=== PATIENT | female | born 1950 | race Caucasian/White ===

== ENCOUNTER → 2017-10-22 | Outpatient (CLI) | payer MEDICARE, OTHER ==
--- NOTE | 2017-10-22 12:01 | ECHOF ---
Referral Reason:I05.1 mitral insufficiency MEASUREMENTS -------- HEIGHT: 165.1 cm WEIGHT: 108.9 kg BP: RVIDd: 3.1 cm (< 3.3) IVSd: 1.3 cm (0.6 - 1.1) LVIDd: 5.0 cm (3.9 - 5.3) LVPWd: 1.4 cm (0.6 - 1.1) IVSs: 1.4 cm LVIDs: 4.0 cm LVPWs: 1.6 cm LA Diam: 4.4 cm (2.7 - 3.8) LAESV Index (A-L): 39.30 ml/m Ao Diam: 2.6 cm (2.0 - 3.7) AV Cusp: 1.2 cm (1.5 - 2.6) LA Diam: 4.3 cm (2.7 - 3.8) MV EXCURSION: 18.742 mm (> 18.000) MV EF SLOPE: 48 mm/s (70 - 150) EPSS: 1.1 cm MV E Sedrick: 1.20 m/s MV DecT: 270 ms MV A Sedrick: 0.86 m/s MV E/A Ratio: 1.39 AV maxP.83 mmHg AV meanP.96 mmHg RAP: 5.00 mmHg RVSP: 19.39 mmHg FINDINGS -------- Sinus rhythm. This was a technically adequate study. The left ventricular size is normal. There is mild concentric left ventricular hypertrophy. Overa ll left ventricular systolic function is low-normal with, an EF between 50 - 55 %. The right ventricle is normal in size. The left atrium is mildly dilated. LA is severely dilated >40 ml/m2 There is mild aortic stenosis present. Peak/mean gradient across the Aortic Valve is 17.83mmHg / 8. 96mmHg. Mild mitral annular calcification present. Mild mitral regurgitation is present. Mild tricuspid regurgitation present. There is no evidence of pulmonary hypertension. The right v entricular systolic pressure, as measured by Doppler, is 19.39mmHg. There is no pulmonic regurgitation present. The aortic root size is normal. There is no pericardial effusion. CONCLUSIONS -------- 1. The left ventricular size is normal. 2. There is mild concentric left ventricular hypertrophy. 3. Overall left ventricular systolic function is low-normal with, an EF between 50 - 55 %. 4. The right ventricle is normal in size. 5. The left atrium is mildly dilated. 6. LA is severely dilated >40 ml/m2 7. There is mild aortic stenosis present. 8. Peak/mean gradient across the Aortic Valve is 17.83mmHg / 8.96mmHg. 9. Mild mitral annular calcification present. 10. Mild mitral regurgitation is present. 11. Mild tricuspid regurgitation present. 12. There is no evidence of pulmonary hypertension. 13. The right ventricular systolic pressure, as measured by Doppler, is 19.39mmHg. 14. There is no pulmonic regurgitation present. 15. The aortic root size is normal. 16. There is no pericardial effusion. REGIONAL TANKER TRUCK DRIVER: Sowmya Castro RDCS
== END | disposition home or self-care (01) ==
LOC: RADECHMAIN 11:15
PROVIDERS: ATTEND Family Medicine
DX: I08.1 Rheumatic disorders of both mitral and tricuspid valves (principal)
CPT/HCPCS: 93306

== ENCOUNTER → 2017-10-29 | Outpatient (CLI) | payer MEDICARE, OTHER ==
--- NOTE | 2017-10-30 14:01 | MM ---
Reason for exam: screening (asymptomatic). Last mammogram was performed 2 years and 3 months ago. History: Patient is postmenopausal. Excisional biopsy of the right breast, 1966. Took hormonal contraceptives for 1 year beginning at age 17. Took estrogen for 2 years. Took progesterone for 2 years. Physical Findings: A clinical breast exam by your physician is recommended on an annual basis and results should be correlated with mammographic findings. MG 3D Screening Mammo W/Cad Bilateral CC and MLO view(s) were taken. Prior study comparison: July 20, 2015, bilateral MG 3d screening mammo w/cad. July 16, 2014, bilateral MG screening mammo w CAD. There are scattered fibroglandular densities. No significant changes when compared with prior studies. ASSESSMENT: Negative, BI-RAD 1 RECOMMENDATION: Routine screening mammogram of both breasts in 1 year.
== END | disposition home or self-care (01) ==
LOC: RADMAMWWP 16:15
PROVIDERS: ATTEND Family Medicine
DX: Z12.31 Encounter for screening mammogram for malignant neoplasm of breast (principal)
CPT/HCPCS: 77063; 77067

== ENCOUNTER → 2018-01-17 | Outpatient (CLI) | payer MEDICARE, OTHER ==
--- NOTE | 2018-01-17 16:20 | PN ---
PROGRESS NOTE DATE OF SERVICE: 01/17/2018 This patient is a 67-year-old lady who has been followed in the sleep center for treatment of obstructive sleep apnea-hypopnea syndrome. Patient is successfully continuing to use her CPAP equipment every night. Sometimes she feels that the pressure is not enough for her. [place] Sleepiness Scale today is 10. I checked her CPAP unit. CPAP pressure is 9 cm of water. Usage is 353 nights out of 365 nights for more than 4 hours for the last year. Average usage is 10.6 hours. Leak for the year is 11 L/minute, which is within normal range. Apnea-hypopnea index average for the year is 1.3, which is perfect. MEDICATIONS: 1. Metformin. 2. Glimepiride. 3. Gabapentin. 4. Atenolol. 5. Chlorthalidone. 6. Lotrel. 7. Fluoxetine. 8. Methylphenidate. 9. Atorvastatin. 10.Oxycodone. PHYSICAL EXAMINATION: GENERAL: A pleasant patient in no distress. VITAL SIGNS: Temperature 97.8, oxygen saturation at room air 94%, HR 60, blood pressure 190/86. Height 5 feet 5-1/2 inches, weight 243.4, body mass index 39.8. HEENT: PERRLA, EOMI. Evaluation of oropharynx showed tongue protrudes midline. Low position of soft palate. NECK: Supple. No JVD. Thyroid is not palpable. LUNGS: Clear to percussion and to auscultation. Good air exchange. No wheezing or rhonchi. HEART: S1, S2 regular. No murmurs, gallops or rubs. ABDOMEN: Obese. EXTREMITIES: No clubbing or cyanosis. ASSEMBLER ERECTOR: Awake, alert, and oriented X3. Cranial nerves 2 to 7 intact. There is no fasciculation or atrophy. noted. No focal deficits observed. IMPRESSION: 1. Obstructive sleep apnea-hypopnea syndrome. Patient has demonstrated practically 100% compliance with treatment, benefitting from treatment. 2. Obesity. 3. Hypertension. 4. Diabetes mellitus. 5. History of anxiety and episodes of panic attack. 6. History of depression. 7. History of attention deficit hyperactivity disorder. 8. Hyperlipidemia. 9. History of rheumatic fever. PLAN: 1. I adjusted CPAP pressure up to 11 cm of water. I reviewed results of the previous sleep study. 2. Patient will continue to use CPAP equipment every night. 3. Watching and losing weight. 4. Sleep hygiene with regular time in bed for at least 8 hours. 5. No driving if feeling any sleepiness. 6. Prescription for all necessary CPAP supplies, including mask, tube, filters. Thank you very much for allowing me to participate in the management of your patient. Sincerely, Jose Orozco MD, PhD, FAASM Diplomat of [place] [employer] [place] [employer] Chief Development Officer of [facility] [place] MMODL / TANISHAN: [id number] /
== END | disposition home or self-care (01) ==
LOC: SLEEP 14:49
PROVIDERS: ATTEND Internal Medicine
DX: G47.33 Obstructive sleep apnea (adult) (pediatric) (principal); E66.9 Obesity, unspecified; I10 Essential (primary) hypertension; E11.9 Type 2 diabetes mellitus without complications; E78.5 Hyperlipidemia, unspecified; F41.0 Panic disorder [episodic paroxysmal anxiety]; F32.9 Major depressive disorder, single episode, unspecified; F90.9 Attention-deficit hyperactivity disorder, unspecified type; Z68.39 Body mass index [BMI] 39.0-39.9, adult; Z87.898 Personal history of other specified conditions; Z99.89 Dependence on other enabling machines and devices; Z79.84 Long term (current) use of oral hypoglycemic drugs; Z79.891 Long term (current) use of opiate analgesic; Z79.899 Other long term (current) drug therapy

== ENCOUNTER 2018-01-28 09:54 | Day surgery (SDC) | payer MEDICARE, OTHER ==
[2018-01-23 13:15] VITALS: BMI 40.1
[~2018-01-28 09:54] MED LIST: LACTATED RINGERS 1,000 ML IV SCH
[2018-01-28 10:24] VITALS: TEMP 97
[2018-01-28 10:25] LABS: Glucose,Whole Blood 147 mg/dL (75-99)
[2018-01-28] MEDS ORDERED: PROPOFOL 10 MG/ML 20 ML VIAL IV ONE (11:05)
[2018-01-28] MEDS ORDERED: KETAMINE 10 MG/ML 20 ML VIAL ONE (11:05)
[2018-01-28] MEDS ORDERED: LIDOCAINE 1% INJ 10MG/ML (20 ML MDV) ONE (11:05)
[2018-01-28 11:36] VITALS: BP 117/69; PULSE 61; RESP 16
--- NOTE | 2018-01-28 11:36 | P.PCN ---
Date of Procedure: 01/28/18 Procedure(s) Performed: Procedure: 1. Esophagogastroduodenoscopy and biopsy. 2. Total colonoscopy. Preoperative diagnosis: Esophagitis and screening for colon cancer. Postoperative diagnosis: 1. Small sliding hiatal hernia with no obvious esophagitis or complicated reflux disease. 2. Mild gastritis. 3. Biopsies obtained from the duodenum, antrum and esophagus. 4. Sigmoid diverticulosis with no evidence of acute diverticulitis, strictures, polyps or cancer. Preparation: HalfLytely prep. Sedation: Was provided by anesthesia. Brief clinical history: The patient is an 67-year-old female who is scheduled for this evaluation because of reflux issues and difficulty swallowing. There is also family history of colon cancer in her sister. She had a prior colonoscopy around 2009. The patient has no abdominal complaints, bleeding or anemia. Procedure: With the patient on her left lateral decubitus position and after informed consent and adequate sedation, I passed the Olympus-GIF 160 video upper endoscope through the cricopharyngeus down the esophagus. GE junction was around 39 cm from the incisors and there was a small sliding hiatal hernia but no obvious esophagitis or complicated reflux disease. The endoscope was then passed into the stomach which was insufflated with air and inspected in detail including the retroflex view in the cardia. There was some mottling and erythema in the antrum but no ulcers or erosions. Pyloric channel did not show any ulcers. Duodenal bulb, post bulbar area and descending duodenum appeared within normal limits. I obtained biopsies from the duodenum, antrum and esophagus then the endoscope was withdrawn and I proceeded with the colonoscopy. Perianal area did not show any fissures or fistulas. There were no masses felt on digital rectal examination. The Olympus CFQ 160L video colonoscope was then inserted in the rectum in the usual fashion and advanced to the cecum. There were few diverticular orifices seen scattered in the sigmoid but I saw no evidence of acute diverticulitis or strictures. No polyps or tumors were seen or any potential sources of bleeding. I retroflexed the endoscope in the rectum before the endoscope was withdrawn. The patient tolerated the procedure well. Plan: The patient was reassured. Discussed dietary measures. She will follow- up with you as planned and I recommended repeat colonoscopy in 5 years because of the family history and her sister.
== END 2018-01-28 12:13 | disposition home or self-care (01) ==
LOC: ORWHC2ENDO 09:54
DX: Z12.11 Encounter for screening for malignant neoplasm of colon (principal); K29.50 Unspecified chronic gastritis without bleeding; K21.0 Gastro-esophageal reflux disease with esophagitis; E78.5 Hyperlipidemia, unspecified; K44.9 Diaphragmatic hernia without obstruction or gangrene; K57.30 Diverticulosis of large intestine without perforation or abscess without bleeding; J44.9 Chronic obstructive pulmonary disease, unspecified; I25.10 Atherosclerotic heart disease of native coronary artery without angina pectoris; I10 Essential (primary) hypertension; E11.9 Type 2 diabetes mellitus without complications; E66.9 Obesity, unspecified; M19.90 Unspecified osteoarthritis, unspecified site; F32.9 Major depressive disorder, single episode, unspecified; Z79.84 Long term (current) use of oral hypoglycemic drugs; Z79.891 Long term (current) use of opiate analgesic; Z80.0 Family history of malignant neoplasm of digestive organs; Z79.899 Other long term (current) drug therapy; Z68.41 Body mass index [BMI] 40.0-44.9, adult
CPT/HCPCS: 43239; J2001; J2704; G0105; 88305

== ENCOUNTER → 2019-01-09 | Outpatient (CLI) | payer MEDICARE, OTHER ==
--- NOTE | 2019-01-10 13:42 | MM ---
Reason for exam: screening (asymptomatic). Last mammogram was performed 1 year and 2 months ago. History: Patient is postmenopausal. Excisional biopsy of the right breast, 1966. Took hormonal contraceptives for 1 year beginning at age 17. Took estrogen for 2 years. Took progesterone for 2 years. Physical Findings: A clinical breast exam by your physician is recommended on an annual basis and results should be correlated with mammographic findings. MG 3D Screening Mammo W/Cad Bilateral CC, MLO, and XCCL view(s) were taken. Prior study comparison: October 29, 2017, bilateral MG 3d screening mammo w/cad. July 20, 2015, bilateral MG 3d screening mammo w/cad. No significant changes when compared with prior studies. ASSESSMENT: Negative, BI-RAD 1 RECOMMENDATION: Routine screening mammogram of both breasts in 1 year.
== END | disposition home or self-care (01) ==
LOC: RADMAMWWP 11:02
PROVIDERS: ATTEND Nurse Practitioner
DX: Z12.31 Encounter for screening mammogram for malignant neoplasm of breast (principal)
CPT/HCPCS: 77063; 77067

== ENCOUNTER → 2019-01-16 | Outpatient (CLI) | payer MEDICARE, OTHER ==
--- NOTE | 2019-01-16 14:26 | SFUN ---
SLEEP CENTER FOLLOW UP NOTE DATE OF SERVICE: 01/16/2019 A 68-year-old lady who has been followed in the Sleep Center for treatment of obstructive sleep apnea-hypopnea syndrome. Patient continued to use her CPAP equipment every night for the whole night and does not have any problem related to the mask fitting or pressure. She would prefer to change regimen of her heated humidity and her heated tube. [place] Sleepiness Scale today is 2, which is absolutely perfect. I checked her CPAP unit. CPAP pressure is 10 cm of water. Usage is every night and 29/30 nights more than 4 hours. Average usage 12.1 hours per night. Leak is 70 L/minute. Apnea-hypopnea index only 1.4, which is absolutely perfect. MEDICATIONS: Glimepiride, metformin, gabapentin, atenolol, chlorthalidone, Lotrel, , methylphenidate, atorvastatin, oxycodone. PHYSICAL EXAM: Patient in no distress, BP 148/73, HR 66, RR 16, height 5 foot, 5-1/2 inches, weight 242 pounds. Body mass index 39.6, temperature 98.3, oxygen saturation at room air 95%. OROPHARYNX: Low position of soft palate, Mallampati 3. ABDOMEN: Slightly obese. NECK: Supple, no JVD. Thyroid is not palpable. LUNGS: Clear to percussion and to auscultation. Good air exchange. No wheezing or rhonchi. HEART: S1, S2 regular. No murmurs, gallops, or rubs. EXTREMITIES: No clubbing or cyanosis. SCHOOL OFFICE MANAGER: Awake, alert, and oriented X3. Cranial nerves 2 to 7 intact. There is no fasciculation or atrophy. noted. No focal deficits observed. IMPRESSION: 1. Obstructive sleep apnea-hypopnea syndrome. Patient demonstrated practically 100% compliance with treatment, benefitting from treatment. 2. Hypertension. 3. Obesity. 4. Diabetes mellitus. 5. History of anxiety and episodes of panic attacks. 6. History of depression. 7. History of ADHD. 8. Hyperlipidemia. 9. History of rheumatic fever. PLAN: 1. Patient will continue to use CPAP equipment every night for the whole night. 2. Losing weight. 3. I explained to patient how to adjust heated humidity of her unit. 4. Precautions related to driving. No driving if feeling sleepiness. 5. I will maintain all necessary prescriptions for supplies including Marsh FX nasal pillow mask, tube, filters. 6. Followup visit in one year or earlier if patient has any problems. Thank you very much for allowing me to participate in the management of your patient. Sincerely, Jose Orozco MD, PhD, FAASM Diplomat of [place] [employer] [place] [employer] Food Server of [facility] [place] MMODL / TANISHAN: [id number] /
== END | disposition home or self-care (01) ==
LOC: SLEEP 13:14
PROVIDERS: ATTEND Internal Medicine
DX: G47.33 Obstructive sleep apnea (adult) (pediatric) (principal); I10 Essential (primary) hypertension; E66.9 Obesity, unspecified; E11.9 Type 2 diabetes mellitus without complications; E78.5 Hyperlipidemia, unspecified; Z86.59 Personal history of other mental and behavioral disorders; Z87.09 Personal history of other diseases of the respiratory system; Z99.89 Dependence on other enabling machines and devices

== ENCOUNTER → 2019-02-07 | Outpatient (CLI) | payer MEDICARE, OTHER ==
--- NOTE | 2019-02-07 12:53 | US ---
EXAMINATION TYPE: US kidneys/renal and bladder DATE OF EXAM: 02/07/2019 COMPARISON: CT 2016 CLINICAL HISTORY: N18.3 Chronic kidney disease State III. EXAM MEASUREMENTS: Right Kidney: 12.3 x 6.0 x 5.4 cm Left Kidney: 10.2 x 4.4 x 4.5 cm Right Kidney: No hydronephrosis or masses seen Left Kidney: thinned cortex Bladder: wnl Bilateral Jets seen: only right jet seen There is asymmetric diminished size and cortical thinning to the left kidney which correlates with [address] No concerning solid or cystic renal masses bilaterally. No hydronephrosis noted. The urinary bladder is satisfactorily distended. Bilateral ureteral jets are not seen. IMPRESSION: Asymmetric chronic medical renal changes to left kidney.
== END | disposition home or self-care (01) ==
LOC: RADUSWWP 12:21
PROVIDERS: ATTEND Internal Medicine
DX: N18.3 Chronic kidney disease, stage 3 (moderate) (principal)
CPT/HCPCS: 76770

== ENCOUNTER → 2019-02-17 | Outpatient (CLI) | payer MEDICARE, OTHER ==
--- NOTE | 2019-02-17 15:16 | US ---
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 Bruit EXAM MEASUREMENTS: RIGHT: Peak Systolic Velocity (PSV) cm/sec ----- Right CCA: 71.6 ----- Right ICA: 62.5 ----- Right ECA: 87.3 ICA/CCA ratio: 0.9 RIGHT: End Diastole cm/sec ----- Right CCA: 16.8 ----- Right ICA: 22.0 ----- Right ECA: 5.1 LEFT: Peak Systolic Velocity (PSV) cm/sec ----- Left CCA: 91.9 ----- Left ICA: 90.3 ----- Left ECA: 98.4 ICA/CCA ratio: 1.0 LEFT: End Diastole cm/sec ----- Left CCA: 17.6 ----- Left ICA: 19.2 ----- Left ECA: 11.5 VERTEBRALS (direction of flow): Right Vertebral: Antegrade Left Vertebral: Antegrade Rhythm: Normal No significant stenosis seen IMPRESSION: Mild degree of grayscale atheromatous plaquing with no sonographically evident hemodynam ically significant stenosis within either visualized carotid arterial system. Criteria for Assigning % of Stenosis / Diameter reduction (Estimation based on the indirect measurements of the internal carotid artery velocities (ICA PSV). 1. Normal (no stenosis)=ICA PSV < 125 cm/s: ratio < 2.0: ICA EDV<40 cm/s. 2. Less than 50% stenosis=ICA PSV < 125 cm/s: ratio < 2.0: ICA EDV<40 cm/s. 3. 50 to 69% stenosis=ICA PSV of 125 to 230 cm/s: ration 2.0 ? 4.0: ICA EDV 40-100 cm/s. 4. Greater than 70% stenosis to near occlusion= ICA PSV > 230 cm/s: ratio > 4.0: ICA EDV > 100 cm/s. 5. Near occlusion= ICA PSV velocities may be low or undetectable: variable ratio and ICA EDV. 6. Total occlusion=unable to detect flow.
--- NOTE | 2019-02-18 09:00 | ECHOF ---
Referral Reason:I051 RHUEMATIC MITRAL INS MEASUREMENTS -------- HEIGHT: 165.1 cm WEIGHT: 108.9 kg BP: RVIDd: 3.6 cm (< 3.3) IVSd: 1.3 cm (0.6 - 1.1) LVIDd: 5.0 cm (3.9 - 5.3) LVPWd: 1.4 cm (0.6 - 1.1) IVSs: 1.6 cm LVIDs: 3.8 cm LVPWs: 2.2 cm LAESV Index (A-L): 47.81 ml/m Ao Diam: 2.9 cm (2.0 - 3.7) AV Cusp: 1.8 cm (1.5 - 2.6) LA Diam: 5.4 cm (2.7 - 3.8) MV E Sedrick: 1.59 m/s MV DecT: 265 ms MV A Sedrick: 0.73 m/s MV E/A Ratio: 2.33 AV maxP.80 mmHg AV meanP.31 mmHg RAP: 5.00 mmHg RVSP: 36.65 mmHg FINDINGS -------- Sinus rhythm. This was a technically adequate study. The left ventricular size is normal. There is mild concentric left ventricular hypertrophy. Overa ll left ventricular systolic function is normal with, an EF between 55 - 60 %. Increased Lap Grade II Diastolic Dysfunction. The right ventricle is mildly enlarged. LA is severely dilated >40 ml/m2 The right atrium is mildly enlarged. Interatrial and interventricular septum intact. The aortic valve was not well visualized. There is no evidence of aortic regurgitation. There is mild aortic stenosis present. Peak/mean gradient across the Aortic Valve is 18.80mmHg / 11.31mmHg. Mild mitral annular calcification present. [id number] mitral regurgitation is present. The peak and mean MV gradients are 14.02mmHg 5.24mmHg as measured by doppler. Mild mitral stenosis , w ith a MVA of 2.6cm (by PHT) Mild tricuspid regurgitation present. There is mild pulmonary hypertension. The right ventricular systolic pressure, as measured by Doppler, is 36.65mmHg. Trace/mild (physiologic) pulmonic regurgitation. The aortic root size is normal. The inferior vena cava is mildly dilated. There is no pericardial effusion. CONCLUSIONS -------- 1. Sinus rhythm. 2. This was a technically adequate study. 3. The left ventricular size is normal. 4. There is mild concentric left ventricular hypertrophy. 5. Overall left ventricular systolic function is normal with, an EF between 55 - 60 %. 6. Increased Lap Grade II Diastolic Dysfunction. 7. The right ventricle is mildly enlarged. 8. LA is severely dilated >40 ml/m2 9. The right atrium is mildly enlarged. 10. Interatrial and interventricular septum intact. 11. The aortic valve was not well visualized. 12. There is no evidence of aortic regurgitation. 13. There is mild aortic stenosis present. 14. Peak/mean gradient across the Aortic Valve is 18.80mmHg / 11.31mmHg. 15. Mild mitral annular calcification present. 16. [id number] mitral regurgitation is present. 17. The peak and mean MV gradients are 14.02mmHg 5.24mmHg as measured by doppler. 18. Mild mitral stenosis. 19. , with a MVA of 2.6cm (by PHT) 20. Mild tricuspid regurgitation present. 21. There is mild pulmonary hypertension. 22. The right ventricular systolic pressure, as measured by Doppler, is 36.65mmHg. 23. Trace/mild (physiologic) pulmonic regurgitation. 24. The aortic root size is normal. 25. The inferior vena cava is mildly dilated. 26. There is no pericardial effusion. VICE PRESIDENT COMPLIANCE: TIMOTHY Sanchez
== END | disposition home or self-care (01) ==
LOC: RADUSWWP 14:19
PROVIDERS: ATTEND Family Medicine
DX: I08.1 Rheumatic disorders of both mitral and tricuspid valves (principal); I27.20 Pulmonary hypertension, unspecified; I87.8 Other specified disorders of veins; I65.23 Occlusion and stenosis of bilateral carotid arteries
CPT/HCPCS: 93306; 93880

== ENCOUNTER 2020-02-20 07:52 | Day surgery (SDC) | payer MEDICARE, OTHER ==
[2020-02-19 13:31] VITALS: BMI 37.9
[2020-02-20 08:23] LABS: Glucose,Whole Blood 146 mg/dL (75-99)
[2020-02-20 08:25] VITALS: TEMP 98.5
[2020-02-20] MEDS ORDERED: LIDOCAINE 1% (10MG/ML) FOR IV START INTRADERMA ONE (08:27)
[2020-02-20] MEDS ORDERED: LIDOCAINE 1% INJ 10MG/ML (20 ML MDV) ONE (08:38)
[2020-02-20] MEDS ORDERED: PROPOFOL 10 MG/ML 20 ML VIAL IV ONE (08:38)
--- NOTE | 2020-02-20 08:58 | P.PCN ---
Date of Procedure: 02/20/20 Procedure(s) Performed: BRIEF HISTORY: Patient is a 69-year-old pleasant white female scheduled for an elective colonoscopy as a part of evaluation of change in bowel habits and chronic diarrhea for the last 6 months duration. PROCEDURE PERFORMED: Colonoscopy with snare polypectomy. PREOPERATIVE DIAGNOSIS: Change in bowel habits/chronic diarrhea of 6 months duration. IV sedation per Anesthesia. PROCEDURE: After informed consent was obtained, the patient, was brought into the endoscopy unit. IV sedation was administered by Anesthesia under continuous monitoring. Digital rectal examination was normal. Initially the Olympus CF-160 flexible video colonoscope was then inserted in the rectum, gradually advanced into the cecum without any difficulty. Careful examination was performed as the scope was gradually being withdrawn. Ileocecal valve and the appendiceal orifice were visualized and appeared normal. Prep was excellent. Mucosa of the cecum, ascending colon, appeared normal. In the transverse colon there was a 5 mm and 7 mm sessile polyp removed by snare polypectomy. Rest of the transverse colon, descending colon, sigmoid colon, and rectum appeared normal. Retroflexion was performed in the rectum and no lesions were seen. The patient tolerated the procedure well. IMPRESSION: 5 mm and 7 mm transverse colon polyp status post snare polypectomy Rest of the colon appeared normal RECOMMENDATIONS: Findings of this examination were discussed with the patient as well as a family. She was advised to follow with the biopsy results. If the biopsy shows an adenoma she can have a repeat colonoscopy in 5 years
[2020-02-20 09:11] VITALS: RESP 16
[2020-02-20 09:31] VITALS: BP 165/75; PULSE 63
== END 2020-02-20 09:52 | disposition home or self-care (01) ==
LOC: ORWHC2ENDO 07:52
PROVIDERS: ATTEND Internal Medicine Gastroenterology
DX: D12.3 Benign neoplasm of transverse colon (principal); K52.9 Noninfective gastroenteritis and colitis, unspecified; I10 Essential (primary) hypertension; J44.9 Chronic obstructive pulmonary disease, unspecified; E11.9 Type 2 diabetes mellitus without complications; Z98.51 Tubal ligation status; Z90.49 Acquired absence of other specified parts of digestive tract; Z98.890 Other specified postprocedural states; Z79.84 Long term (current) use of oral hypoglycemic drugs; Z79.891 Long term (current) use of opiate analgesic; Z79.899 Other long term (current) drug therapy; Z88.8 Allergy status to other drugs, medicaments and biological substances
CPT/HCPCS: 88305; 45385; J2001; J2704

== ENCOUNTER → 2020-08-06 | Outpatient (CLI) | payer MEDICARE, OTHER ==
[~2020-08-06] MED LIST changes: -LACTATED RINGERS 1,000 ML IV SCH; +REGADENOSON 0.4 MG/5 ML SYRINGE IV PRN
--- NOTE | 2020-08-06 13:57 | NM ---
EXAMINATION TYPE: NM stress lexiscan cardiolite DATE OF EXAM: 08/06/2020 COMPARISON: NONE HISTORY: TECHNIQUE: After the intravenous administration of 10.0 mCi Tc 99m Sestamibi - Cardiolite resting SP ECT images acquired 45 minutes post injection. The patient received 0.4mg Lexiscan, 24.9 mCi Tc 99m Sestamibi - Stress images obtained [address] injection FINDINGS: Review of stress and rest SPECT images demonstrates no distinct perfusion abnormality. Gated analysi s shows normal wall motion with an estimated left ventricular ejection fraction of 56 %. IMPRESSION: No scintigraphic evidence for reversible ischemia.
--- NOTE | 2020-08-09 17:30 | P.STRESS ---
- Stress Test Note Stress Test Results/Findings: Exam Performed: NM stress lexiscan cardiolite Exam Date: 08/06/20 Reason for Exam: Shortness of Breath Height: 5 ft 5 in Weight: 230 kg Protocol: LEXISCAN Stage: NA Duration of Exercise: NA Resting Heart Rate: 59 Resting Blood Pressure: 149/63 Maximum Achieved Heart Rate: 71 Maximum Achieved Blood Pressure: 167/75 85% PMHR: 128 100% PMHR: 150 METS: NA Technologist Comment: Stress Test Results/Findings: Baseline heart rate 59 beats a minute, Baseline blood pressure 149/63 mmHg Baseline 12-lead EKG shows sinus rhythm normal ST segments Patient received infusion of Lexiscan per protocol No change in heart rate blood pressure no No ECG abnormalities Nuchal portion of the report separately
== END | disposition home or self-care (01) ==
LOC: RADNMMAIN 08:32
PROVIDERS: ATTEND Nurse Practitioner Family
DX: R06.02 Shortness of breath (principal)
CPT/HCPCS: 93017; 78452; A9500; J2785

== ENCOUNTER → 2020-11-29 | Outpatient (CLI) | payer MEDICARE, OTHER ==
--- NOTE | 2020-11-30 10:43 | ECHOF ---
Referral Reason: MEASUREMENTS -------- HEIGHT: 165.1 cm WEIGHT: 104.3 kg BP: RVIDd: 3.6 cm (< 3.3) IVSd: 1.2 cm (0.6 - 1.1) LVIDd: 4.6 cm (3.9 - 5.3) LVPWd: 1.5 cm (0.6 - 1.1) IVSs: 1.9 cm LVIDs: 3.0 cm LVPWs: 1.7 cm LA Diam: 4.4 cm (2.7 - 3.8) Ao Diam: 2.7 cm (2.0 - 3.7) LA Diam: 4.4 cm (2.7 - 3.8) MV E Sedrick: 1.60 m/s MV DecT: 333 ms MV A Sedrick: 0.65 m/s MV E/A Ratio: 2.46 AV maxP.02 mmHg AV meanP.35 mmHg FINDINGS -------- Sinus rhythm. This was a technically adequate study. The left ventricular size is normal. There is mild concentric left ventricular hypertrophy. Overa ll left ventricular systolic function is normal with, an EF between 55 - 60 %. The right ventricle is normal in size. The left atrium is mildly dilated. The right atrial size is normal. There is mild aortic valve sclerosis. There is mild aortic stenosis present. Peak/mean gradient a cross the Aortic Valve is 25.02mmHg / 14.35mmHg. Mild mitral annular calcification present. Mild mitral regurgitation is present. The tricuspid valve appears structurally normal. Mild tricuspid regurgitation present. Right vent ricular systolic pressure is normal at < 35 mmHg. Trace/mild (physiologic) pulmonic regurgitation. The aortic root size is normal. There is no pericardial effusion. CONCLUSIONS -------- 1. There is mild concentric left ventricular hypertrophy. 2. Overall left ventricular systolic function is normal with, an EF between 55 - 60 %. 3. The left atrium is mildly dilated. 4. There is mild aortic stenosis present. 5. Peak/mean gradient across the Aortic Valve is 25.02mmHg / 14.35mmHg. 6. Mild mitral regurgitation is present. 7. Mild tricuspid regurgitation present. 8. Trace/mild (physiologic) pulmonic regurgitation. 9. There is no pericardial effusion. SPECTROGRAPHER: Sowmya Castro RDCS
== END | disposition home or self-care (01) ==
LOC: RADECHMAIN 12:05
PROVIDERS: ATTEND Nurse Practitioner
DX: I35.0 Nonrheumatic aortic (valve) stenosis (principal); I34.0 Nonrheumatic mitral (valve) insufficiency; I51.7 Cardiomegaly; J98.4 Other disorders of lung
CPT/HCPCS: 93306

== ENCOUNTER → 2021-01-03 | Outpatient (CLI) | payer MEDICARE, OTHER ==
--- NOTE | 2021-01-04 14:01 | MM ---
Reason for exam: screening (asymptomatic). Last mammogram was performed 2 years ago. History: Patient is postmenopausal. Excisional biopsy of the right breast, 1966. Took hormonal contraceptives for 1 year beginning at age 17. Took estrogen for 2 years. Took progesterone for 2 years. Physical Findings: A clinical breast exam by your physician is recommended on an annual basis and results should be correlated with mammographic findings. MG Screening Mammo w CAD Bilateral CC and MLO view(s) were taken. Prior study comparison: January 09, 2019, bilateral MG 3d screening mammo w/cad. October 29, 2017, bilateral MG 3d screening mammo w/cad. There are scattered fibroglandular densities. No significant changes when compared with prior studies. ASSESSMENT: Negative, BI-RAD 1 RECOMMENDATION: Routine screening mammogram of both breasts in 1 year.
== END | disposition home or self-care (01) ==
LOC: RADMAMWWP 12:04
PROVIDERS: ATTEND Family Medicine
DX: Z12.31 Encounter for screening mammogram for malignant neoplasm of breast (principal)
CPT/HCPCS: 77067

== ENCOUNTER → 2022-01-04 | Outpatient (CLI) | payer MEDICARE, OTHER ==
--- NOTE | 2022-01-04 16:20 | BD ---
EXAMINATION TYPE: Axial Bone Density DATE OF EXAM: 01/04/2022 COMPARISON: NONE CLINICAL HISTORY: 71 years old Female. ICD-10 CODE: Z78.0 asymptomatic menopausal Height: 65 Weight: 229 FRAX RISK QUESTIONS: Alcohol (3 or more units per day): no Family History (Parent hip fracture): yes Glucocorticoids (More than 3mos): no (Ex: prednisone, prednisolone, methylprednisolone, dexamethasone, and hydrocortisone). History of Fracture in Adulthood: no Secondary Osteoporosis: 1. Type 1 Diabetes: no 2. Hyperthyroidism: no 3. Menopause before 45: no 4. Malnutrition: no 5. Chronic liver disease: no Rheumatoid Arthritis: no Current Tobacco Use: no RISK FACTORS HISTORY OF: Surgery to Spine/Hip(right/left)/Wrist (right/left): no Family History of Osteoporosis: yes Active: yes Diet low in dairy products/other sources of calcium: no Postmenopausal woman: yes Lost more than 2 inches in height since high school: no MEDICATIONS: metformin,vit d Additional History: EXAM MEASUREMENTS: Bone mineral densitometry was performed using the idiag System. Bone mineral density as measured about the Lumbar spine is: ----- L1-L4(G/cm2): 1.282 T Score Values are as follows: ----- L1: -1.2 ----- L2: 1.2 ----- L3: 1.6 ----- L4: 1.4 ----- L1-L4: 0.8 Bone mineral density has: Increased 4.4% since study of: 07/16/2014 Bone mineral density about the R hip (g/cm2): 0.904 Bone mineral density about the L hip (g/cm2): 0.897 T Score values are as follows: -----R Neck: -1.0 -----L Neck: -1.0 -----R Total: 0.1 -----L Total: -0.5 Bone mineral density has: Decreased -12.7% since study of: 07/16/2014 FRAX%s: The graph provided illustrates a 12.5% chance for a major osteoporotic fx and a 2.7% chance f or the hips probability for fx in 10 years time. IMPRESSION: Normal (Values between +1 and -1 indicate normal bone mass). Consider repeating this study in 5 year s or sooner if there is some new clinical indication. NOTE: T-SCORE=SD OF THE YOUNG ADULT MEAN.
--- NOTE | 2022-01-05 08:43 | MM ---
Reason for Exam: Screening (asymptomatic). Last screening mammogram was performed 12 month(s) ago. Patient History: Menarche at age 12. First Full-Term at age 18. Postmenopausal. Patient used Estrogen for 2 years. Patient used Progesterone for 2 years. Hormonal Contraceptives, starting at age 17 for 1 year. 1966, Excisional Biopsy on the Right side. Risk Values: Yanely 5 year model risk: 1.5%. NCI Lifetime model risk: 3.9%. Prior Study Comparison: 10/29/2017 Bilateral Screening Mammogram, [facility]. 01/09/2019 Bilateral Screening Mammogram, [facility]. 01/03/2021 Bilateral Screening Mammogram, [facility]. Tissue Density: There are scattered fibroglandular densities. Findings: Analyzed By CAD. There is no suspicious group of microcalcifications or new suspicious mass in either breast. No significant change from prior exams. Overall Assessment: Negative, BI-RAD 1 Management: Screening Mammogram of both breasts in 1 year. A clinical breast exam by your physician is recommended on an annual basis and results should be correlated with mammographic findings. Electronically signed and approved by: Kar Gomez D.O.
== END | disposition home or self-care (01) ==
LOC: RADMAMWWP 14:01
PROVIDERS: ATTEND Family Medicine
DX: Z12.31 Encounter for screening mammogram for malignant neoplasm of breast (principal); Z78.0 Asymptomatic menopausal state
CPT/HCPCS: 77063; 77067; 77080

== ENCOUNTER → 2023-03-16 | Outpatient (CLI) | payer MEDICARE, OTHER ==
--- NOTE | 2023-03-16 13:03 | MM ---
Reason for Exam: Screening (asymptomatic). Last mammogram was performed 1 year(s) and 3 month(s) ago. Patient History: Menarche at age 12. First Full-Term at age 18. Postmenopausal. Patient used Estrogen for 2 years. Patient used Progesterone for 2 years. Hormonal Contraceptives, starting at age 17 for 1 year. 1966, Excisional Biopsy on the Right side. Risk Values: Yanely 5 year model risk: 1.5%. NCI Lifetime model risk: 3.7%. Prior Study Comparison: 01/09/2019 Bilateral Screening Mammogram, [facility]. 01/03/2021 Bilateral Screening Mammogram, [facility]. 01/04/2022 Bilateral MG 3D screening mammo w/cad, [facility]. Tissue Density: The breast tissue is almost entirely fat. Findings: Analyzed By CAD. There is no suspicious group of microcalcifications or new suspicious mass. Overall Assessment: Negative, BI-RAD 1 Management: Screening Mammogram of both breasts in [address] [facility] will attempt to contact patient to return for supplemental views and ultrasound if indicated. Patient should continue monthly self-breast exams. A clinical breast exam by your physician is recommended on an annual basis. This exam should not preclude additional follow-up of suspicious palpable abnormalities. Note on Yanely scores and lifetime risk: 1. A Yanely score greater than 3% is considered moderate risk. If this is the case, consider specialist referral to assess eligibility for a risk reducing agent. 2. If overall lifetime risk for the development of breast cancer is 20% or higher, the patient may qualify for future screening with alternating mammogram and breast MRI. Electronically signed and approved by: Dario Gallo DO
== END | disposition home or self-care (01) ==
LOC: RADMAMWWP 12:02
PROVIDERS: ATTEND Family Medicine
DX: Z12.31 Encounter for screening mammogram for malignant neoplasm of breast (principal); Z78.0 Asymptomatic menopausal state
CPT/HCPCS: 77063; 77067

== ENCOUNTER → 2023-05-31 | Outpatient (CLI) | payer MEDICARE, OTHER ==
[2023-05-31 15:45] VITALS: BP 164/70; PULSE 72; RESP 16; TEMP 97.4
--- NOTE | 2023-05-31 16:11 | P.SLEEP ---
History of Present Illness DATE: 05/31/2023 CONSULTATION/NEW PATIENT EVALUATION HISTORY OF PRESENT ILLNESS/SLEEP-WAKE EVALUATION: 72-year-old lady had been e valuated in the sleep center for obstructive sleep apnea hypopnea syndrome. Patient has history of obstructive sleep apnea for many years. Last time I saw the patient in our office in 2015. Since that time patient continued to use your CPAP equipment every night for the whole night. I checked your CPAP unit. Pressure is 10 cm of water. Usage is 100% of nights. Average usage is 12.5 hours per night. Leak is 14 L/min which is acceptable. Apnea hypopnea index is 1.2 which is normal. CPAP unit is old. Motor life expectancy was exceeded. SLEEP SCHEDULE: Patient sleeps for 5-8 hours average. No exact sleep schedule. FALLING ASLEEP: No problems with falling asleep. DURING SLEEP: No snoring while using your CPAP. Wakes up from sleep once to use the restroom. No history of hypnogogical hallucinations, sleep paralysis, or cataplexy. DURING THE DAY/WAKE STATE: In the morning patient may feel some sleepiness. Positive history of memory problems and anxiety. Clemons sleepiness scale is 0. Patient takes 1 nap at 4 PM. PAST MEDICAL HISTORY: Hypertension, diabetes, history of depression, history of anxiety, degenerative joint disease, hyperlipidemia, history of rheumatic fever in childhood. PAST SURGICAL HISTORY: Cholecystectomy, appendectomy, tonsillectomy. MEDICATIONS: Glimepiride 4 mg 2 tablets once a day, amlodipine 10 mg once a day, valsartan 160 mg once a day, atenololchlorthalidone 100-20 mg once a day, atorvastatin 40 mg once a day, methylphenidate 20 mg 3 times a day, fluoxetine 20 mg once a day, furosemide 20 mg. SOCIAL HISTORY: See below. FAMILY HISTORY: Stroke, cancer, thyroid problems. REVIEW OF SYSTEMS: Occasional awakenings from sleep and sleepiness. No fevers. No double vision. No recent chest pain. No shortness of breath. No abdominal pain. No bleeding episodes. No blood in urine. No seizure episodes. PHYSICAL EXAMINATION: GENERAL: A pleasant patient without any distress. VITAL SIGNS: See below, body mass index 39. HEENT: PERRLA, EOMI. Evaluation of oropharynx showed tongue protrudes midline, low position of soft palate Mallampati 4. NECK: Supple. No JVD. Thyroid is not palpable. 17.5 inches in circumference. LUNGS: Clear to percussion and to auscultation. Good air exchange. No wheezing or rhonchi. HEART: S1, S2 regular. No murmurs, gallops or rubs. ABDOMEN: Soft and nontender. Bowel sounds are present. No organomegaly appreciated. EXTREMITIES: No clubbing or cyanosis. TRAVEL ASSISTANT: Awake, alert, and oriented x3. Cranial nerves 2 to 7 intact. There is no fasciculation or atrophy noted. No focal deficits observed. ASSESSMENT: 1. Obstructive sleep apnea hypopnea syndrome for more than 10 years. Patient demonstrated great compliance with CPAP treatment. Normal respiration on CPAP at the pressure of 10 cm of water. Wide neck 17.5 inches in circumference, extremely low position of soft palate Mallampati 4. CPAP unit is old, motor life expectancy exceeded, CPAP unit is noisy. 2. Obesity, BMI 39. 3. Hypertension. 4. Diabetes mellitus. 5 hyperlipidemia. 6 . History of depression. 7. Status post spinal surgery. 8. History of rheumatic fever in childhood. 9 . Status post cholecystectomy. 10. Status post appendectomy. 11. Status post tonsillectomy. PLAN: 1. Prescription to replace CPAP unit, prescription for all necessary CPAP supplies. 2. Follow-up visit in 30 to 90 days after patient will get new CPAP unit to evaluate clinical response to treatment, compliance with treatment and make any suggestions. 3. Preferable position during sleep on the side. 4. No driving if patient feels any sleepiness. Patient is aware of civil and criminal liability for unsafe driving. 5. Sleep hygiene with regular sleep time for at least 7.5-8 hours. 6. Watching and losing weight. Thank you very much for referring this patient for consultation. Sincerely, Past Medical History Past Medical History: COPD, Diabetes Mellitus, GERD/Reflux, Hyperlipidemia, Hypertension, Osteoarthritis (OA), Renal Disease Additional Past Medical History / Comment(s): Back pain, peripheral neuropathy, tinnitus, problems with diarrhea currently. History of Any Multi-Drug Resistant Organisms: None Reported Past Surgical History: Appendectomy, Back Surgery, Cholecystectomy, Tonsill ectomy, Tubal Ligation Additional Past Surgical History / Comment(s): Colonoscopy Past Anesthesia/Blood Transfusion Reactions: No Reported Reaction Past Psychological History: ADD/ADHD, Depression Smoking Status: Former smoker Past Alcohol Use History: None Reported Additional Past Alcohol Use History / Comment(s): quit smoking 1984, smoked 1 and 1/2ppd since a teenager. Past Drug Use History: None Reported - Past Family History Sister(s) Family Medical History: Cancer Additional Family Medical History / Comment(s): colon, lung Medications and Allergies Home Medications Medication Instructions Recorded Confirmed Type FLUoxetine HCL [PROzac] 20 mg PO DAILY 07/17/14 05/31/23 History Glimepiride [Amaryl] 4 mg PO BID 07/17/14 05/31/23 History HYDROcodone/APAP 10-325MG [[place] 1 each PO Q6H PRN 07/17/14 02/20/20 History 10] Methylphenidate HCl [Ritalin] 20 mg PO TID 07/17/14 05/31/23 History Albuterol Inhaler [Ventolin Hfa 1 - 2 puff INHALATION RT-Q6H PRN 01/23/18 05/31/23 History Inhaler] Atenolol/Chlorthalidone 1 each PO QAM 01/23/18 05/31/23 History [Atenolol-Chlorthalidone 100-25] Atorvastatin [Lipitor] 40 mg PO HS 01/23/18 05/31/23 History Gabapentin [Neurontin] 600 mg PO BID 01/23/18 02/20/20 History amLODIPine BESYLATE/BENAZEPRIL 1 cap PO QAM 01/23/18 05/31/23 History [Lotrel 5-20 mg Capsule] Cholecalciferol [Vitamin D3] 400 unit PO DAILY 02/19/20 02/20/20 History Iron 18 mg PO DAILY 02/19/20 05/31/23 History Magnesium Chloride [Slow Mag] 64 mg PO DAILY 02/19/20 02/20/20 History Linagliptin [Tradjenta] 1 DAILY 05/31/23 History oxyCODONE-APAP 10-325MG [Percocet 1 Q4HR 05/31/23 History 10-325 mg] Allergies Allergy/AdvReac Type Severity Reaction Status Date / Time pravastatin [From Pravachol] AdvReac Unknown Verified 02/20/20 08:16 simvastatin [From Zocor] AdvReac Unknown Verified 02/20/20 08:16 Physical Exam Vitals: Vital Signs Temp Pulse Resp BP Pulse Ox 05/31/23 15:31 97.4 F L 72 16 164/70 92 L Intake and Output 05/31/23 05/31/23 05/31/23 06:59 14:59 22:59 Other: Weight 107.955 kg Sleep Note - Sleep Data ESS Total: 0 - Sleep Note Sleep Note: Temperature: 97.4 F Pulse Rate: 72 Respiratory Rate: 16 Blood Pressure: 164/70 SpO2: 92 Height: 5 ft 5.5 in Weight: 107.955 kg BMI: Neck Circumference: 17.5
== END ==
LOC: 3 N SLEEP 14:57
PROVIDERS: ATTEND Internal Medicine
DX: G47.33 Obstructive sleep apnea (adult) (pediatric) (principal); E66.9 Obesity, unspecified; I10 Essential (primary) hypertension; E11.9 Type 2 diabetes mellitus without complications; E78.5 Hyperlipidemia, unspecified; F32.A Depression, unspecified; Z98.890 Other specified postprocedural states; Z90.89 Acquired absence of other organs; Z86.19 Personal history of other infectious and parasitic diseases; Z90.49 Acquired absence of other specified parts of digestive tract; Z68.39 Body mass index [BMI] 39.0-39.9, adult; Z88.8 Allergy status to other drugs, medicaments and biological substances; Z79.899 Other long term (current) drug therapy; Z79.84 Long term (current) use of oral hypoglycemic drugs; Z87.891 Personal history of nicotine dependence
CPT/HCPCS: 99211

== ENCOUNTER 2023-07-26 13:59 | Emergency (ER) | payer MEDICARE, OTHER ==
--- NOTE | 2023-07-26 14:16 | ED ---
Fall HPI - General Chief Complaint: Fall Stated Complaint: fell L wrist and eye injury Time Seen by Provider: 07/26/23 14:10 Source: patient, RN notes reviewed Mode of arrival: ambulatory - History of Present Illness Initial Comments: This is a 72-year-old female who presents to the emergency department chief complaint of a fall. Patient states that she was walking to her car yesterday when she felt her knees gave out causing her to fall striking her head on the pavement in addition to falling on her outstretched left wrist. Patient is currently complaining of a headache and left wrist and shoulder pain. She denies previous shoulder surgeries or current use of blood thinners. Patient states that she remembers the fall denies loss of consciousness. - Related Data Home Medications Medication Instructions Recorded Confirmed FLUoxetine HCL [PROzac] 20 mg PO DAILY 07/17/14 05/31/23 Glimepiride [Amaryl] 4 mg PO BID 07/17/14 05/31/23 HYDROcodone/APAP 10-325MG [[place] 1 each PO Q6H PRN 07/17/14 02/20/20 10] Methylphenidate HCl [Ritalin] 20 mg PO TID 07/17/14 05/31/23 Albuterol Inhaler [Ventolin Hfa 1 - 2 puff INHALATION RT-Q6H PRN 01/23/18 05/31/23 Inhaler] Atenolol/Chlorthalidone 1 each PO QAM 01/23/18 05/31/23 [Atenolol-Chlorthalidone 100-25] Atorvastatin [Lipitor] 40 mg PO HS 01/23/18 05/31/23 Gabapentin [Neurontin] 600 mg PO BID 01/23/18 02/20/20 amLODIPine BESYLATE/BENAZEPRIL 1 cap PO QAM 01/23/18 05/31/23 [Lotrel 5-20 mg Capsule] Cholecalciferol [Vitamin D3] 400 unit PO DAILY 02/19/20 02/20/20 Iron 18 mg PO DAILY 02/19/20 05/31/23 Magnesium Chloride [Slow Mag] 64 mg PO DAILY 02/19/20 02/20/20 Linagliptin [Tradjenta] 1 DAILY 05/31/23 oxyCODONE-APAP 10-325MG [Percocet 1 Q4HR 05/31/23 10-325 mg] Allergies Allergy/AdvReac Type Severity Reaction Status Date / Time pravastatin [From Pravachol] AdvReac Unknown Verified 07/26/23 14:03 simvastatin [From Zocor] AdvReac Unknown Verified 07/26/23 14:03 Review of Systems ROS Statement: Those systems with pertinent positive or pertinent negative responses have been documented in the HPI. ROS Other: All systems not noted in ROS Statement are negative. Past Medical History Past Medical History: COPD, Diabetes Mellitus, GERD/Reflux, Hyperlipidemia, Hypertension, Osteoarthritis (OA), Renal Disease Additional Past Medical History / Comment(s): Back pain, peripheral neuropathy, tinnitus, problems with diarrhea currently. History of Any Multi-Drug Resistant Organisms: None Reported Past Surgical History: Appendectomy, Back Surgery, Cholecystectomy, Tonsillectomy, Tubal Ligation Additional Past Surgical History / Comment(s): Colonoscopy Past Anesthesia/Blood Transfusion Reactions: No Reported Reaction Past Psychological History: ADD/ADHD, Depression Smoking Status: Former smoker Past Alcohol Use History: None Reported Past Drug Use History: None Reported - Past Family History Sister(s) Family Medical History: Cancer Additional Family Medical History / Comment(s): colon, lung General Exam - General Exam Comments Initial Comments: Visual Physical Exam Vital signs reviewed General: Well-appearing, nontoxic, no acute distress. Head: Normocephalic, atraumatic Eyes: PERRLA, EOMI ENT: Airway patent Chest: Nonlabored breathing Skin: No visual rash, normal skin tone Neuro: Alert and oriented 3 Musculoskeletal: No gross abnormalities Limitations: no limitations General appearance: alert, in no apparent distress Head exam: Present: other (hematoma over the right anterior scalp) Eye exam: Present: periorbital swelling (ecchymosis over the right eye, EOM intact with no pain on EOM), periorbital tenderness ENT exam: Present: normal exam, mucous membranes moist Neck exam: Present: normal inspection. Absent: tenderness, meningismus, lymphadenopathy Respiratory exam: Present: normal lung sounds bilaterally. Absent: respiratory distress, wheezes, rales, rhonchi, stridor Cardiovascular Exam: Present: regular rate, normal rhythm, normal heart sounds. Absent: systolic murmur, diastolic murmur, rubs, gallop, clicks GI/Abdominal exam: Present: soft, normal bowel sounds. Absent: distended, tenderness, guarding, rebound, rigid Left Hand Wrist exam: Present: tenderness (anterior wrist exacerabted with movement). Absent: full ROM, swelling, laceration, ecchymosis Vascular: Absent: vascular compromise Back exam: Present: normal inspection Neurological exam: Present: alert, oriented X3, CN II-XII intact Psychiatric exam: Present: normal affect, normal mood Skin exam: Present: warm, dry, intact, normal color. Absent: rash Course Vital Signs 07/26/23 07/26/23 14:01 17:37 Temperature 97.9 F 97.4 F L Pulse Rate 54 L 61 Respiratory 18 16 Rate Blood Pressure 101/58 151/73 O2 Sat by Pulse 96 96 Oximetry Medical Decision Making - Medical Decision Making Was pt. sent in by a medical professional or institution (, PA, LOAN AND CREDIT MANAGER, urgent care, hospital, or jail...) When possible be specific @ -No Did you speak to anyone other than the patient for history (EMS, parent, family, police, friend...)? What history was obtained from this source @ -No Did you review nursing and triage notes (agree or disagree)? Why? @ -I reviewed and agree with nursing and triage notes Were old charts reviewed (outside hosp., previous admission, EMS record, old EKG, old radiological studies, urgent care reports/EKG's, jail records)? Report findings @ -No old charts were reviewed Differential Diagnosis (chest pain, altered mental status, abdominal pain women, abdominal pain men, vaginal bleeding, weakness, fever, dyspnea, syncope, headache, dizziness, GI bleed, back pain, seizure, CVA, palpatations, mental health, musculoskeletal)? @ -Fall, contusion, orbital fracture, concussion, wrist pain, wrist fracture, this list is not all inclusive. EKG interpreted by me (3pts min.). @ -None X-rays interpreted by me (1pt min.). @ -xrays ordered of the left wrist, shoulder, and forearm reveals no bony abnormalities. There is a 4.8 soft tissue lipoma of the antecubital fossa. There is soft tissue swelling noted over the left wrist with no acute abnormality seen. CT interpreted by me (1pt min.). @ -CT of the facial bones without contrast reveals a fracture involving the medial right wall of the orbit and right nasal bone fracture. U/S interpreted by me (1pt. min.). @ -None done What testing was considered but not performed or refused? (CT, X-rays, U/S, labs)? Why? @ -None What meds were considered but not given or refused? Why? @ -None Did you discuss the management of the patient with other professionals (professionals i.e. Dr., PA, LOAN AND CREDIT MANAGER, lab, RT, psych nurse, sexual assault social worker, engraver wood, teacher, information officer, case worker)? Give summary @ -No Was smoking cessation discussed for >3mins.? @ -No Was critical care preformed (if so, how long)? @ -No Were there social determinants of health that impacted care today? How? (Homeles sness, low income, unemployed, alcoholism, drug addiction, transportation, low edu. Level, literacy, decrease access to med. care, longterm, rehab)? @ -No Was there de-escalation of care discussed even if they declined (Discuss DNR or withdrawal of care, Hospice)? DNR status @ -No What co-morbidities impacted this encounter? (DM, HTN, Smoking, COPD, CAD, Cancer, CVA, ARF, Chemo, Hep., AIDS, mental health diagnosis, sleep apnea, morbid obesity)? @ -None Was patient admitted / discharged? Hospital course, mention meds given and route, prescriptions, significant lab abnormalities, going to OR and other pertinent info. @ -72-year-old female with chief complaint of fall. On examination patient noted to have ecchymosis of her right orbit. Extraocular movements are intact. No pain with eye movement. Additionally patient complaining of left wrist and shoulder pain. She will be sent for appropriate imaging. Evaluation discussion with patient there is a fracture of the medial right wall of the orbit. No bony fractures of the wrist, shoulder or forearm. Discharged with referral to ENT for further evaluation. Additionally she was placed in a Deshaun wrap for the wrist due to pain and swelling. All questions answered at bedside. Patient is stable for discharge. Case discussed with Dr. Barnett Undiagnosed new problem with uncertain prognosis? @ -No Drug Therapy requiring intensive monitoring for toxicity (Heparin, Nitro, Insulin, Cardizem)? @ -No Were any procedures done? @ -No Diagnosis/symptom? @ -, Left wrist pain, fracture of the medial wall of the right orbit. Acute, or Chronic, or Acute on Chronic? @ -Acute Uncomplicated (without systemic symptoms) or Complicated (systemic symptoms)? @ -uncomplicated Side effects of treatment? @ -No Exacerbation, Progression, or Severe Exacerbation? @ -No Poses a threat to life or bodily function? How? (Chest pain, [place], [place], pneumonia, PE, COPD, DKA, ARF, appy, cholecystitis, CVA, Diverticulitis, Homicidal, Suicidal, threat to staff... and all critical care pts) @ -No Disposition Clinical Impression: Fall, Wrist pain, Orbital fracture Narrative: Please return to the Emergency Department if symptoms worsen or any other concerns. Disposition: HOME SELF-CARE Condition: Good Is patient prescribed a controlled substance at d/c from ED?: No Referrals: Myah Toney DO [Primary Care Provider] - 1-2 days Bipin Jonas MD [STAFF PHYSICIAN] - 1-2 days Time of Disposition: 18:37
--- NOTE | 2023-07-26 15:27 | CT ---
EXAMINATION TYPE: CT facial bones wo con DATE OF EXAM: 07/26/2023 COMPARISON: None HISTORY: fall, facial swelling and black eye, no loc CT DLP: 601.[address] of the facial bones was performed in the axial and coronal planes. Bone and soft tissu e window settings are submitted. Soft tissue swelling surrounding the right orbit. Foci of air within the right orbit. There is fracture involving the medial wall of the right orbit. Right nasal bone fracture suspected s een best on axial image 30 of 78. The globes are intact. Opacification right-sided ethmoid air cells. Nasal septal deviation from right to left. IMPRESSION: 1. There is fracture involving the medial wall of the right orbit. Right nasal bone fracture suspect ed seen best on axial image 30 of 78.
[2023-07-26] MEDS: HYDROcodone/APAP 5-325MG 1 EACH TAB PO STA (17:51)
--- NOTE | 2023-07-26 18:26 | XR ---
EXAMINATION TYPE: XR forearm 2 views LT, XR wrist complete 4 views LT, XR shoulder complete 3 views L T DATE OF EXAM: 07/26/2023 COMPARISON: NONE HISTORY: 72-year-old female fall, injury, pain FINDINGS: Left shoulder: AC joint appears congruent and intact. Mild patchy sclerosis of the greater tuberosity. Subacromial s pace is preserved. No acute fracture, subluxation, or dislocation seen. Left forearm: No elbow joint effusion. There is a rounded lucency projecting at the antecubital fossa measuring 4.8 cm. Possible underlying soft tissue lipoma. No acute fracture. Left wrist: Moderate degenerative change first CMC and triscaphe joints. There is soft tissue swelling about the wrist especially along the radial aspect. Osteopenia without acute fracture identified. The radiocarp al and distal radioulnar joint as well as the midcarpal compartment appear intact. IMPRESSION: 1. Left shoulder: Bony changes suggesting chronic rotator cuff tendinopathy. No acute osseous abnorma lity seen. 2. Left forearm: Possible 4.8 cm soft tissue lipoma projecting at the antecubital fossa. Correlate fo r any palpable abnormality. Nonemergent CT or MRI if clinically indicated. No acute osseous abnormali ty seen. 3. Left wrist: Prominent soft tissue swelling especially along the radial aspect. Moderate osteoarthr itic change at the base of the thumb. No acute osseous abnormality seen though osteopenia limits the assessment. If symptoms persist, consider follow-up radiograph in 10-14 days.
[2023-07-26 19:24] VITALS: BP 150/76; PULSE 58; RESP 18; TEMP 97.8
== END 2023-07-26 19:08 | disposition home or self-care (01) ==
LOC: EC 13:59
DX: S02.85XA Fracture of orbit, unspecified, initial encounter for closed fracture (principal); S00.11XA Contusion of right eyelid and periocular area, initial encounter; M25.532 Pain in left wrist; Z87.891 Personal history of nicotine dependence; Z88.8 Allergy status to other drugs, medicaments and biological substances; W19.XXXA Unspecified fall, initial encounter; Y93.01 Activity, walking, marching and hiking
CPT/HCPCS: 70486; 99284

== ENCOUNTER → 2023-08-09 | Outpatient (CLI) | payer MEDICARE, OTHER ==
--- NOTE | 2023-08-09 16:16 | US ---
EXAMINATION TYPE: US kidneys/renal and bladder DATE OF EXAM: 08/09/2023 COMPARISON: US CLINICAL INDICATION: Female, 72 years old with history of N18.5 CHRONIC KIDNEY DISEASE, STAGE 5 R11.0 ; CKD EXAM MEASUREMENTS: Right Kidney: 12.3 x 6.0 x 5.4 cm Left Kidney: 10.2 x 4.4 x 4.5 cm Right Kidney: Cystic lesion upper pole= 2.6 x 2.5 x 2.7 cm, no evidence of hydro Left Kidney: Cortical thinning, small in size when compared to right kidney, hypoechoic lesions scatt ered throughout, 1.4 x 1.3 x 1.6 cm Bladder: wnl Bilateral Jets seen: No There is no evidence for hydronephrosis at this point in time. No nephrolithiasis is seen. No oracio s are identified. The urinary bladder is anechoic. Bilateral ureteral jets are seen. IMPRESSION: 1. Bilateral renal cysts
[2023-08-09 18:08] LABS: HCT 31.9 % (37.2-46.3); HGB 10.2 g/dL (12.0-15.0); MCH 30.5 pg (27.0-32.0); MCV 95.5 FL (80.0-97.0); Mean Platelet Volume 11.4 FL (9.5-12.2); NRBC Per 100 WBC 0 X 10*3/uL (0.00-0.01); Platelet Count 223 X 10*3/uL (140-440); RBC 3.34 X 10*6/uL (4.10-5.20); RDW 14.8 % (11.5-14.5); WBC 8.68 X 10*3/uL (4.50-10.00)
[2023-08-09 21:01] LABS: % Iron Saturation 21.67 (12.00-45.00); ALT 9 U/L (8-44); AST 13 U/L (13-35); Albumin 4.5 g/dL (3.8-4.9); Albumin/Globulin Ratio 2.37 Ratio (1.60-3.17); Alkaline Phosphatase 109 U/L (41-126); BUN/Creat Ratio 19.07 Ratio (12.00-20.00); Blood Urea Nitrogen 51.5 mg/dL (9.0-27.0); Calcium 9.9 mg/dL (8.7-10.3); Carbon Dioxide 25.1 mmol/L (21.6-31.8); Chloride 102 mmol/L (96-109); Globulin 1.9 g/dL (1.6-3.3); Glucose 99 mg/dL (70-110); Iron 70 UG/DL (50-170); Magnesium 1.8 mg/dL (1.5-2.4); Phosphorus 4.3 mg/dL (2.4-5.1); Potassium 4.6 mmol/L (3.5-5.5); Sodium 140 mmol/L (135-145); Total Bilirubin 0.3 mg/dL (0.3-1.2); Total Iron Binding Capacity 323 UG/DL (228-460); Total Protein 6.4 g/dL (6.2-8.2); Uric Acid 4.9 mg/dL (2.9-7.7)
[2023-08-09 21:16] LABS: Appearance,Urine Clear (Clear); Bilirubin,Urine Negative (Negative); Blood,Urine Negative (Negative); Color,Urine Yellow (Yellow); Ketones,Urine Negative (Negative); Nitrite,Urine Negative (Negative); PH, Urine 7.5; Specific Gravity,Urine 1.006 (1.001-1.030); Urobilinogen,Urine 0.2 E.U./DL
[2023-08-09 21:24] LABS: Bacteria,Urine None Seen (None Seen)
[2023-08-09 23:58] LABS: Urine Creatinine 18.6 mg/dL (28.0-217.0)
== END | disposition home or self-care (01) ==
LOC: RADUSWWP 13:22
PROVIDERS: ATTEND Internal Medicine
DX: N28.1 Cyst of kidney, acquired (principal); N18.5 Chronic kidney disease, stage 5; R11.0 Nausea
CPT/HCPCS: 76770; 80053; 81001; 82043; 82306; 82570; 82728; 83540; 83550; 83735; 83970; 84100; 84550; 85027

== ENCOUNTER 2023-08-10 08:42 | Day surgery (SDC) | payer MEDICARE, OTHER ==
--- NOTE | 2023-08-10 07:34 | P.GSHP ---
History of Present Illness H&P Date: 08/10/23 Chief Complaint: Renal failure 72-year-old female here today for elective peritoneal dialysis catheter insertion. Patient has had gradual decline in her kidney function. Lives with her daughter at home. No history of hernias. Previous open appendectomy. Past Medical History Past Medical History: COPD, Diabetes Mellitus, GERD/Reflux, Hyperlipidemia, Hypertension, Osteoarthritis (OA), Renal Disease Additional Past Medical History / Comment(s): Back pain, peripheral neuropathy, tinnitus History of Any Multi-Drug Resistant Organisms: None Reported Past Surgical History: Appendectomy, Back Surgery, Cholecystectomy, Tonsillectomy, Tubal Ligation Additional Past Surgical History / Comment(s): Colonoscopy. BILATERAL CATARACTS/LENS IMPLANT. Past Anesthesia/Blood Transfusion Reactions: No Reported Reaction Past Psychological History: ADD/ADHD, Depression Smoking Status: Former smoker Past Alcohol Use History: None Reported Additional Past Alcohol Use History / Comment(s): quit smoking 1984, smoked 1 and 1/2ppd since a teenager. Past Drug Use History: None Reported - Past Family History Sister(s) Family Medical History: Cancer Additional Family Medical History / Comment(s): colon, lung Medications and Allergies Home Medications Medication Instructions Recorded Confirmed Type FLUoxetine HCL [PROzac] 20 mg PO QAM 07/17/14 08/08/23 History Glimepiride [Amaryl] 4 mg PO BID 07/17/14 08/08/23 History Methylphenidate HCl [Ritalin] 20 mg PO TID 07/17/14 08/08/23 History Albuterol Inhaler [Ventolin Hfa 1 - 2 puff INHALATION RT-Q6H PRN 01/23/18 08/08/23 History Inhaler] Atenolol/Chlorthalidone 1 each PO QAM 01/23/18 08/08/23 History [Atenolol-Chlorthalidone 100-25] Gabapentin [Neurontin] 600 mg PO BID 01/23/18 08/08/23 History oxyCODONE-APAP 10-325MG [Percocet 1 tab PO Q4HR PRN 05/31/23 08/08/23 History 10-325 mg] Amlodipine Besylate/Valsartan 1 tab PO QAM 08/08/23 08/08/23 History [Amlodipine Besylate/Valsartan 10-160 mg] Atorvastatin [Lipitor] 20 mg PO QAM 08/08/23 08/08/23 History Ergocalciferol (Vitamin D2) 1,250 mg PO MO 08/08/23 08/08/23 History [Drisdol (50,000 Iu)] Pioglitazone [Actos] 30 mg PO QAM 08/08/23 08/08/23 History Allergies Allergy/AdvReac Type Severity Reaction Status Date / Time pravastatin [From Pravachol] AdvReac Unknown Verified 08/08/23 12:26 simvastatin [From Zocor] AdvReac Unknown Verified 08/08/23 12:26 Surgical - Exam Physical exam: General: Well-developed, well-nourished HEENT: Normocephalic, sclerae nonicteric Abdomen: Nontender, nondistended Extremities: No edema Neuro: Alert and oriented Assessment and Plan (1) Renal failure Narrative/Plan: 72-year-old female with renal failure. Will proceed with peritoneal dialysis catheter insertion at this time. Risks of bleeding, infection, poor function, bowel injury, fluid leak, hernia, peritonitis discussed. She understands and wishes to proceed. Status: Acute Code(s): N19 - UNSPECIFIED KIDNEY FAILURE SNOMED Code(s): 21708064
[~2023-08-10 08:42] MED LIST changes: +LACTATED RINGERS 1,000 ML IV SCH; -REGADENOSON 0.4 MG/5 ML SYRINGE IV PRN; +fentaNYL (PF) 50 MCG/ML 2 ML AMP IV PRN
[2023-08-10 09:29] LABS: Glucose,Whole Blood 92 mg/dL (70-110)
[2023-08-10] MEDS: SODIUM CHLORIDE 0.9% 500 ML 500 ML IV ONE ×2 (09:30→10:36)
[2023-08-10] MEDS: ONDANSETRON 4 MG/2 ML VIAL IVP ONE ×2 (09:54→11:54)
[2023-08-10] MEDS: DEXAMETHASONE SOD PHOSPHATE 4 MG/ML 1 ML VIAL IV ONE (09:54)
[2023-08-10] MEDS ORDERED: ROCURONIUM 10 MG/ML (5 ML VIAL) IV ONE (10:00)
[2023-08-10] MEDS ORDERED: GLYCOPYRROLATE 0.2 MG/ML 2 ML VIAL ONE (10:00)
[2023-08-10] MEDS ORDERED: LIDOCAINE 1% INJ 10MG/ML (20 ML MDV) ONE (10:00)
[2023-08-10] MEDS ORDERED: MIDAZOLAM 2 MG/2 ML VIAL ONE (10:00)
[2023-08-10] MEDS ORDERED: PROPOFOL 10 MG/ML 20 ML VIAL IV ONE (10:00)
[2023-08-10] MEDS ORDERED: fentaNYL (PF) 50 MCG/ML 2 ML AMP ONE (10:00)
[2023-08-10] MEDS ORDERED: SUCCINYLCHOLINE CHLORIDE 200 MG/10 ML VIAL IV ONE (10:00)
[2023-08-10] MEDS ORDERED: NEOSTIGMINE 1 MG/ML 10 ML VIAL ONE (10:00)
[2023-08-10] MEDS: BUPIVACAINE (PF) 0.25% 30 ML VIAL SQ ONE (10:26)
[2023-08-10 10:42] LABS: African American GFR (CKD) 18 (>60 ml/min/1.73 sqM); Blood Urea Nitrogen 59 mg/dL (7-17); Non-African American GFR(CKD) 16 (>60 ml/min/1.73 sqM)
[2023-08-10] MEDS ORDERED: NALOXONE 0.4 MG/ML 1 ML VIAL IV PRN (10:55)
--- NOTE | 2023-08-10 10:59 | P.OP ---
Date of Procedure: 08/10/23 Procedure(s) Performed: PREOPERATIVE DIAGNOSIS: Renal failure POSTOPERATIVE DIAGNOSIS: Same PROCEDURE: Peritoneal dialysis catheter insertion SURGEON: Jaime EBL: Minimal ANESTHESIA: Sedation plus local COMPLICATIONS: None OPERATIVE PROCEDURE: The patient was placed in the operative table in the supine position. The abdomen was prepped and draped in usual sterile fashion. A small vertical incision was made in the left periumbilical location. Dissection down through the subcutaneous tissues took place using electrocautery. The anterior rectus was divided vertically using the scalpel. The rectus was bluntly. The posterior rectus was visualized. An 0 Vicryl pursestring was placed. A small opening in the posterior rectus fascia and peritoneum took place using a Metzenbaum scissors. There were no adhesions to the suture that was placed. The pigtail catheter was advanced into the pelvis over a stylette. No resistance was met. The inner cuff was secured to the fascia using the 0 Vicryl pursestring that was placed. The catheter was tunneled to an exit site in the left lateral lower quadrant. The catheter was connected to the 1 L bag of saline and approximated 800 mL of saline was easily introduced into the peritoneal cavity. The fluid was then allowed to evacuate. The majority of the fluid was returned. The anterior rectus fascia was then reapproximated using a running 0 Vicryl stitch. The subcutaneous tissues reprepped using 3-0 Vicryl sutures and the skin using 4-0 Monocryl sutures. The outpatient dialysis adapter was applied to the end of the catheter. Sterile dressings were then applied after skin glue was placed over the incision. DISPOSITION: Stable to recovery room
[2023-08-10 11:31] VITALS: RESP 16; TEMP 97.2
[2023-08-10] MEDS: oxyCODONE-APAP 5-325MG 1 EACH TAB PO PRN (12:05)
[2023-08-10 13:20] VITALS: BP 179/92; PULSE 54
== END 2023-08-10 13:09 | disposition home or self-care (01) ==
LOC: OR 08:42
PROVIDERS: ATTEND Surgery
DX: I12.9 Hypertensive chronic kidney disease with stage 1 through stage 4 chronic kidney disease, or unspecified chronic kidney disease (principal); E11.22 Type 2 diabetes mellitus with diabetic chronic kidney disease; N18.9 Chronic kidney disease, unspecified; E11.42 Type 2 diabetes mellitus with diabetic polyneuropathy; E78.5 Hyperlipidemia, unspecified; I10 Essential (primary) hypertension; J44.9 Chronic obstructive pulmonary disease, unspecified; K21.9 Gastro-esophageal reflux disease without esophagitis; F90.9 Attention-deficit hyperactivity disorder, unspecified type; M19.90 Unspecified osteoarthritis, unspecified site; Z79.84 Long term (current) use of oral hypoglycemic drugs; Z87.891 Personal history of nicotine dependence; Z90.49 Acquired absence of other specified parts of digestive tract; Z98.51 Tubal ligation status; Z79.51 Long term (current) use of inhaled steroids; Z79.899 Other long term (current) drug therapy; Z88.8 Allergy status to other drugs, medicaments and biological substances; G47.33 Obstructive sleep apnea (adult) (pediatric)
CPT/HCPCS: 82565; 84520; 49421; C1752; J2250; J0330; J1100; J2710; J0690; J2405; J2001; J3010; J2704; J0665

== ENCOUNTER → 2024-07-22 | Outpatient (CLI) | payer MEDICARE, OTHER ==
--- NOTE | 2024-07-22 13:38 | MM ---
Reason for Exam: Screening (asymptomatic). Last mammogram was performed 1 year(s) and 4 month(s) ago. Patient History: Menarche at age 12. First Full-Term at age 18. Postmenopausal. Patient used Estrogen for 2 years. Patient used Progesterone for 2 years. Hormonal Contraceptives, starting at age 17 for 1 year. 1966, Excisional Biopsy on the Right side. Risk Values: Yanely 5 year model risk: 1.5%. NCI Lifetime model risk: 3.5%. Prior Study Comparison: 01/03/2021 Bilateral Screening Mammogram, [facility]. 01/04/2022 Bilateral MG 3D screening mammo w/cad, [facility]. 03/16/2023 Bilateral MG 3D screening mammo w/cad, [facility]. Tissue Density: There are scattered areas of fibroglandular density. Findings: Analyzed By CAD. There are a few tiny benign-appearing round and linear calcifications bilaterally redemonstrated. There is no suspicious group of microcalcifications or new suspicious mass in either breast. Overall Assessment: Benign, BI-RAD 2 Management: Screening Mammogram of both breasts in 1 year. . Patient should continue monthly self-breast exams. A clinical breast exam by your physician is recommended on an annual basis. This exam should not preclude additional follow-up of suspicious palpable abnormalities. Note on Yanely scores and lifetime risk: 1. A Yanely score greater than 3% is considered moderate risk. If this is the case, consider specialist referral to assess eligibility for a risk reducing agent. 2. If overall lifetime risk for the development of breast cancer is 20% or higher, the patient may qualify for future screening with alternating mammogram and breast MRI. [facility], , 07/22/2024 1:36 PM. Electronically signed and approved by: Eulalio Maria M.D.
== END | disposition home or self-care (01) ==
LOC: RADMAMWWP 12:58
PROVIDERS: ATTEND Family Medicine
DX: Z12.31 Encounter for screening mammogram for malignant neoplasm of breast (principal); R92.323 Mammographic fibroglandular density, bilateral breasts; R92.1 Mammographic calcification found on diagnostic imaging of breast; Z78.0 Asymptomatic menopausal state; Z92.0 Personal history of contraception
CPT/HCPCS: 77063; 77067

== ENCOUNTER 2024-08-18 09:54 | Day surgery (SDC) | payer MEDICARE, OTHER ==
[~2024-08-18 09:54] MED LIST changes: +ALPRAZolam 0.25 MG TAB PO PRN; +ALPRAZolam 0.5 MG TAB PO PRN; +HEPARIN SODIUM,PORCINE (1 ML) 2,500 UNIT in SODIUM CHLORIDE 0.9% 250 ML IRRIGATION PRN; +HEPARIN SODIUM,PORCINE 10,000 UNIT in SODIUM CHLORIDE 0.9% 1,000 ML IRRIGATION PRN; -LACTATED RINGERS 1,000 ML IV SCH; +NITROGLYCERIN SL TABS 0.4 MG TAB SUBLINGUAL PRN; -fentaNYL (PF) 50 MCG/ML 2 ML AMP IV PRN
[2024-08-18 10:36] LABS: Glucose,Whole Blood 156 mg/dL (70-110)
[2024-08-18] MEDS: ASPIRIN 325 MG TAB PO STA (10:36)
[2024-08-18] MEDS: SODIUM CHLORIDE 0.9% 1,000 ML in EMPTY BAG 1 BAG IV SCH (10:37)
[2024-08-18 10:42] VITALS: RESP 16; TEMP 97.3
[2024-08-18] MEDS: IV FLUID CONTINUATION 1,000 ML IV ONE (10:42)
[2024-08-18 10:46] LABS: Basophils # (A) 0.09 10*3/uL (0.00-0.10); Basophils % (A) 0.7 %; Eosinophils # (A) 0.33 10*3/uL (0.04-0.35); Eosinophils % (A) 2.5 %; HCT 28.7 % (37.2-46.3); HGB 9.6 g/dL (12.0-15.0); Lymphocytes # (A) 2.11 10*3/uL (0.90-5.00); Lymphocytes % (A) 15.7 %; MCHC 33.4 g/dL (32.0-37.0); MCV 95.7 fL (80.0-97.0); Mean Platelet Volume 11.3 fL (9.5-12.2); Neutrophils # (A) 9.93 10*3/uL (1.80-7.70); Neutrophils % (A) 73.8 %; Platelet Count 270 10*3/uL (140-440); RDW 13.4 % (11.5-14.5); WBC 13.44 10*3/uL (4.50-10.00)
[2024-08-18 11:05] LABS: African American GFR (CKD) 8 (>60 ml/min/1.73 sqM); Anion Gap 14 mmol/L; Blood Urea Nitrogen 60 mg/dL (7-17); Calcium 9.7 mg/dL (8.4-10.2); Carbon Dioxide 26 mmol/L (22-30); Chloride 98 mmol/L (98-107); Glucose 146 mg/dL (74-99); Non-African American GFR(CKD) 7 (>60 ml/min/1.73 sqM); Potassium 4.2 mmol/L (3.5-5.1); Sodium 138 mmol/L (137-145)
[2024-08-18] MEDS: fentaNYL (PF) 50 MCG/1 ML VIAL IVP ONE ×4 (12:35→12:55)
[2024-08-18] MEDS: MIDAZOLAM 2 MG/2 ML VIAL IVP ONE ×4 (12:35→12:55)
[2024-08-18] MEDS: BENZOCAINE SPRAY 1 EACH MM ONE (12:40)
[2024-08-18] MEDS: LIDOCAINE 2% (PF) 20 MG/ML 5 ML VIAL SQ ONE (13:07)
[2024-08-18] MEDS: VERAPAMIL 2.5 MG/ML 4 ML VIAL INTRAARTER ONE (13:08)
[2024-08-18] MEDS: HEPARIN SODIUM 1,000 UN/ML (10ML VL) IVP ONE (13:09)
[2024-08-18] MEDS: IOPAMIDOL-370 100ML BTL INTRATHECA ONE (13:18)
[2024-08-18] MEDS: SODIUM CHLORIDE 0.9% 1,000 ML IV ONE (13:18)
[2024-08-18] MEDS: HEPARIN SODIUM,PORCINE (1 ML) 2,500 UNIT in SODIUM CHLORIDE 0.9% 250 ML IRRIGATION ONE (13:19)
[2024-08-18] MEDS: HEPARIN SODIUM,PORCINE 10,000 UNIT in SODIUM CHLORIDE 0.9% 1,000 ML IRRIGATION ONE (13:19)
--- NOTE | 2024-08-18 13:30 | P.TEE ---
Description of Procedure(s): Procedure performed: Transesophageal Echocardiogram with color flow doppler, pulsed wave doppler and continuous wave doppler, moderate conscious sedation Moderate conscious sedation: Moderate conscious sedation was supplied with direct supervision of myself using Versed and Fentanyl. Complications: none Indications: Aortic stenosis PROCEDURE: After the risks, benefits and alternatives of the above mentioned procedure was explained in detail with the patient, informed consent was obtained. Patient was brought to the lab in a fasting state. Patient was given IV Versed and Fentanyl for sedation. The throat was sprayed with Hurricane to anesthetize the throat. A lubricated Omni probe was then introduced into the esophagus and stomach and multiple views were obtained. 2D echo with color flow doppler, pulsed wave doppler and continuous wave doppler was utilized. Agitated saline bubbles were injected to assess for any intra-atrial shunt. The probe was then removed. Patient tolerated the procedure well. Patient was transferred to the post procedure area in stable and satisfactory condition. FINDINGS: 1. The aortic valve is tricuspid with moderate aortic stenosis and SY 1.1- 1.2cm2 by planimetry 2. The mitral valve appears be normal with mild regurgitation. 3. Tricuspid valve appears to be normal. 4. The interatrial septum is intact. No evidence of PFO. 5. Left atrial appendage is free of clot. 6. Left ventricular EF 55%
--- NOTE | 2024-08-18 13:34 | P.CARDCATH ---
Description of Procedure: PROCEDURES PERFORMED: Left heart catheterization, bilateral coronary angiography, ultrasound guided arterial access INDICATION: Aortic stenosis CONSENT:I have discussed the risks, benefits and alternative therapies for the above-mentioned procedure and for both sedation/analgesia as well as necessary blood product administration, if indicated, as they pertain to this patient. The patient has indicated understanding and acceptance of the risks and procedures discussed. PROCEDURE: After the risks, benefits and alternatives of the above mentioned procedure explained in detail with the patient, informed consent was obtained. Patient was taken to the catheterization lab and prepped and draped in usual fashion. Ultrasound guidance was used to assess for arterial access. 1% lidocaine was used to anesthetize the right radial artery. A 6-[place] sheath was placed in the right radial artery using modified Seldinger technique and ultrasound guidance. Left coronary angiography was performed with a 5-[place] JL 3.5 catheter and right coronary angiography was performed with a 5-[place] FR5 catheter in various views. A 5-[place] FR5 catheter was inserted into the left ventricle and pressure measurements were obtained. The right radial sheath was removed and a TR band was placed with hemostasis achieved. The patient tolerat ed the procedure well. Patient was transported back to the post catheterization holding area in stable condition. Conscious Sedation: Patient was monitored under the direct supervision of myself for conscious sedation using Versed and fentanyl for a total duration of 11 minutes HEMODYNAMICS: Ao: 131/78, LV: 168/15 LVEDP 34mmHg; mean gradient 31mmHg SELECTIVE CORONARY ARTERIOGRAPHY: LEFT MAIN: The left main is a large caliber vessel which bifurcates into the LAD and circumflex. There is 20% left main stenosis. LEFT ANTERIOR DESCENDING CORONARY ARTERY: LAD is a large caliber vessel which wraps around to the apex. There is 20-30% proximal LAD stenosis and diffuse mild luminal irregularities. LEFT CIRCUMFLEX CORONARY ARTERY: Left circumflex is a moderate caliber vessel with mild luminal irregularities RIGHT CORONARY ARTERY: The right coronary artery is a large caliber vessel which gives off a PDA and PLV branch and is the dominant vessel. There is 20% mid RCA stenosis and diffuse mild luminal irregularities. FINAL IMPRESSION: 1. Diffuse mild CAD 2. Elevated left sided filling pressures 3. Moderate aortic stenosis with mean gradient 31mmHg PLAN: 1. Aggressive risk factor modification per most recent ACC/AHA guidelines. 2. More aggressive fluid removal with dialysis.
[2024-08-18 17:43] VITALS: PULSE 57
[2024-08-18 17:57] VITALS: BP 131/57
== END 2024-08-18 16:47 | disposition home or self-care (01) ==
LOC: CATHCVL 09:54
PROVIDERS: ATTEND Internal Medicine
DX: I25.10 Atherosclerotic heart disease of native coronary artery without angina pectoris (principal); I35.0 Nonrheumatic aortic (valve) stenosis; I13.0 Hypertensive heart and chronic kidney disease with heart failure and stage 1 through stage 4 chronic kidney disease, or unspecified chronic kidney disease; I50.32 Chronic diastolic (congestive) heart failure; E11.22 Type 2 diabetes mellitus with diabetic chronic kidney disease; N18.2 Chronic kidney disease, stage 2 (mild); E78.2 Mixed hyperlipidemia; Z79.84 Long term (current) use of oral hypoglycemic drugs; Z79.899 Other long term (current) drug therapy
CPT/HCPCS: 99152; 93312; 93320; 93325; 93458; 80048; 85025; C1769; C1894; J2250; J1644 ×3; Q9967; J2003; J3010